=== PATIENT | male | born 1985 | race Caucasian/White ===

== ENCOUNTER 2017-04-23 18:07 | Emergency (ER) | payer OTHER ==
[~2017-04-23] VITALS: Ht 182.9 cm; Wt 136.1 kg
[~2017-04-23 18:07] MED LIST: AUG875 PO; IBU800 PO; LOR5 PO; PAN40 PO
--- NOTE | 2017-04-23 18:16 | ER Report ---
History and Physical Time Seen By MD: 18:16 Hx. of Stated Complaint: pt cut R thumb while making [place] fries HPI/ROS CHIEF COMPLAINT: thumb laceration HISTORY OF PRESENT ILLNESS: This is a 31 year old male. He was making [place] fries at home tonight and cut his thumb with the potato slicer. He cut a divot off of the end of the inside of his nail and tip of thumb. Bleeding briskly. Tetanus was 10 years ago. He has no problems with movement and having significant pain, no problem with sensation. Allergies: Coded Allergies: No Known Allergies (Verified Allergy, Mild, 04/23/17) Home Meds Active Scripts Cephalexin Monohydrate (CEPHALEXIN) 500 Mg Cap, 500 MG PO Q6H for 5 Days, #20 CAP 0 Refills Prov:GLENDA SIDHU MD 04/23/17 Reviewed Nurses Notes: Yes Hx Smoking: No Smoking Status: Never Smoker Hx Substance Use Disorder: No Hx Alcohol Use: No Constitutional Vital Sign - Last 24 Hours 04/23/17 18:12 Temp 97.5 Pulse 73 Resp 16 B/P (MAP) 135/90 Pulse Ox 92 O2 Delivery Room Air Physical Exam General: Alert, no distress. Skin: about 2cm diameter divot over inside edge of thumb tip cutting into nail. Musculoskeletal: No weakness, moving normally. Neuro: Normal sensation. Circulation: brisk bleeding and cap refill. Medical Decision Making ED Course/Re-evaluation ED Course Procedure: Laceration Repair Verbal consent from patient after discussing repair options, risks and benefits. Wound cleaned extensively with Hibiclens and saline. Anesthesia: 1% lidocaine without epinephrine and 0.5% bupivacaine without epinephrine as a digital block. Location: thumb as described. Length: 2cm diameter. Character: divot. Wound repair: purse-string stitch with 4-0 Vicryl stitch.. The wound repair was simple and performed by myself. Wound care instructions discussed. Tetanus booster given. Cephalexin 500mg four times a day for 5 days. Decision to Disposition Date: Apr 23, 2017 Decision to Disposition Time: 19:02 Depart Departure Latest Vital Signs Vital Signs Date Time Temp Pulse Resp B/P (MAP) Pulse Ox O2 Delivery O2 Flow Rate FiO2 04/23/17 18:12 97.5 73 16 135/90 92 Room Air Impression: Primary Impression: Thumb laceration Condition: Improved Disposition: HOME OR SELF-CARE Referrals: RIVERA IRWIN MD (PCP) New Scripts Cephalexin Monohydrate (CEPHALEXIN) 500 Mg Cap 500 MG PO Q6H for 5 Days, #20 CAP 0 Refills Prov: GLENDA SIDHU MD 04/23/17 Patient Instructions: Finger Laceration (ED) Additional Instructions: Wound Care: Wash the wound once a day with soap and water. Dry the wound and apply a small amount of antibiotic ointment with a clean dressing. If the dressing becomes wet or dirty, repeat cleaning and dressing as above. No soaking the wound; no swimming. Pain Control: Use Tylenol or ibuprofen for pain. Using and ice pack can help reduce swelling. Antibiotic: Cephalexin 500mg 4 times a day for 5 days. Problem Qualifiers Primary Impression: Thumb laceration Encounter type: initial encounter Damage to nail status: with damage Foreign body presence: without foreign body Laterality: right Qualified Codes: S61.111A - Laceration without foreign body of right thumb with damage to nail, initial encounter GLENDA SIDHU MD Apr 23, 2017 18:16
[2017-04-23] MEDS ORDERED: DIPHTH/TETANUS/ACEL. PERTUSSIS IM ONLY ONE (18:45)
[2017-04-23 18:48] VITALS: BP 126/101
[2017-04-23] MEDS ORDERED: CEPH500C24 PO (19:11)
== END 2017-04-23 19:28 | disposition home or self-care (01) ==
LOC: ER 18:17
DX: S61.111A Laceration without foreign body of right thumb with damage to nail, initial encounter (principal); W27.8XXA Contact with other nonpowered hand tool, initial encounter
CPT/HCPCS: 90471; 90715; 99283